=== PATIENT | male | born 1980 ===

== ENCOUNTER 2025-04-01 14:16 | Outpatient (CLI) | payer OTHER | END 2025-04-01 14:17 | disposition home or self-care (01) | LOC: SONOGRAMA 14:16 | PROVIDERS: ATTEND Pathology Anatomic Pathology & Clinical Pathology | DX: D34 Benign neoplasm of thyroid gland (principal); E06.3 Autoimmune thyroiditis; E04.2 Nontoxic multinodular goiter ==